=== PATIENT | female | born 1995 | race Two or more races ===

== ENCOUNTER 2021-03-18 10:14 | Emergency (ER) | payer OTHER ==
[~2021-03-18] VITALS: Ht 162.6 cm; Wt 63.0 kg
[2021-03-18] MEDS ORDERED: ONDANSETRON HCL 4MG/2ML INJ IV ONE (11:00)
[2021-03-18] MEDS ORDERED: MORPHINE SULFATE 4 MG/ML CPJ (NOT FOR IM USE) IV ONE (11:00)
[2021-03-18 11:26] LABS: CLARITY URINE TURBID (CLEAR); COLOR URINE DARK YELLOW (YELLOW); KETONES URINE TRACE (NEGATIVE); LEUKOCYTE ESTERASE URINE 2+ (NEGATIVE); NITRITE URINE NEGATIVE (NEGATIVE); OCCULT BLOOD URINE NEGATIVE (NEGATIVE); PH URINE 5.5 (4.5-8.0); PROTEIN URINE 2+ (NEGATIVE); SPECIFIC GRAVITY URINE 1.032 (1.005-1.030)
[2021-03-18 11:31] LABS: UCG SCREEN NEGATIVE
[2021-03-18 12:00] LABS: BASOPHILS % 0.8 % (0.0-2.0); HEMATOCRIT. 45.1 % (36.0-48.0); HEMOGLOBIN. 15.2 g/dL (12.0-16.0); LYMPHOCYTES % 11.3 % (20.0-50.0); MEAN CORPUSCULAR HEMOGLOBIN 29.5 pg (28.0-32.0); MEAN CORPUSCULAR VOLUME 87.4 fL (81.0-99.0); MEAN PLATELET VOLUME 10.1 fl (7.4-10.4); MONOCYTES % 4.4 % (2.0-8.0); NEUTROPHILS % 83.5 % (40.0-76.0); PLATELET 177 x1000/uL (130-400); RED BLOOD CELL COUNT 5.16 mill/uL (4.2-5.4); RED CELL DISTRIBUTION WIDTH 13.3 % (11.6-14.6)
[2021-03-18 12:08] LABS: CHLORIDE 106 mEq/L (98-107)
[2021-03-18 12:11] LABS: INR 1.1
[2021-03-18] MEDS ORDERED: SODIUM CHLORIDE 0.9% 1000ML BAG (SEPSIS BOLUS) IV ONE (12:15)
[2021-03-18] MEDS ORDERED: CEFTRIAXONE 1 G PREMIX 50 ML IV ONE (12:15)
[2021-03-18 13:00] VITALS: BP 127/88
[2021-03-18] MEDS ORDERED: VISCOUS LIDOCAINE 2% 15 ML UDC MM STA (14:48)
[2021-03-18] MEDS ORDERED: MAGNESIUM/ALUMINUM HYDROXIDE/SIMETHICONE 30ML UDC PO ONE (15:00)
[2021-03-18] MEDS ORDERED: SULF1TAB48 MT (15:20)
[2021-03-18] MEDS ORDERED: ONDA4TAB5 MT (15:20)
[2021-03-18] MEDS ORDERED: IOHEXOL-300 100 ML BOTTLE ONE (16:58)
[2021-03-24] MEDS ORDERED: LEVE10006 MT (12:12)
== END 2021-03-18 15:45 | disposition home or self-care (01) ==
LOC: ER 10:14
DX: R10.9 Unspecified abdominal pain (principal); R11.2 Nausea with vomiting, unspecified; Z88.6 Allergy status to analgesic agent; Z88.8 Allergy status to other drugs, medicaments and biological substances
CPT/HCPCS: 36415; 74177; 76705; 80053; 81003; 81025; 83690; 85025; 85610; 87086; 93005; 96365; 96375; 99285; J0696; J2270; J2405; J7030; Q9967